=== PATIENT | male | born 1965 | race Hispanic/Latino ===

== ENCOUNTER 2017-01-23 03:53 | Emergency (ER) | payer SELFPAY ==
[~2017-01-23] VITALS: Ht 172.7 cm; Wt 97.2 kg
[2017-01-23 04:23] LABS: HEMATOCRIT 42.8 % (38.0-50.0); MCH 30.2 PG (29.0-34.0); MCHC 34.6 G/DL (30.0-36.0); MCV 87.3 FL (86-99); MEAN PLAT.VOLUME 9.3 uM^3 (9.0-12.4); PLATELET COUNT 216 K/uL (156-360); RBC DIS.WIDTH-CV 12.9 % (11.8-14.6); RBC DIS.WIDTH-SD 41.1 % (39-53)
[2017-01-23 04:32] LABS: CHLORIDE 104 mEq/L (99-109); POTASSIUM 3.3 mEq/L (3.7-5.4); SODIUM 137 mEq/L (136-147)
[2017-01-23 04:34] LABS: GLUCOSE 176 mg/dL (70-99)
[2017-01-23 04:36] LABS: ANION GAP 15 MEQ/L (2-14)
[2017-01-23 04:37] LABS: TOTAL BILIRUBIN 0.4 mg/dL (0.0-1.0)
[2017-01-23 04:38] LABS: ALKALINE PHOSPHATASE 87 IU/L (3-129)
[2017-01-23 04:39] LABS: UREA NITROGEN (BUN) 17 mg/dL (9-23)
[2017-01-23 04:40] LABS: GFR ESTIMATE (CALCULATED) > 59 mL/min/
[2017-01-23 05:52] LABS: ADD MIUA? YES; BILIRUBIN NEGATIVE; BLOOD LARGE; COLOR YELLOW ((YELLOW)); GLUCOSE (STRIP) NEGATIVE; KETONES 5; LEUKOCYTES NEGATIVE; NITRITE NEGATIVE; PROTEIN (STRIP) 30; SPECIFIC GRAVITY 1.026 (1.000-1.030); UROBILINOGEN 0.2 MG/DL (0.2-1.0)
[2017-01-23 05:58] LABS: BACTERIA NONE SEEN /HPF; EPITHELIAL CELLS RARE /HPF; MUCUS TRACE /LPF; RED BLOOD CELLS 20-30 /HPF (0-5); UCUL ADDED? NO; WHITE BLOOD CELLS 0-5 /HPF (0-5)
[2017-01-23] MEDS ORDERED: PERCOCET 5/31 TABLET PO (06:11)
[2017-01-23] MEDS ORDERED: MOTRIN600 MG PO (06:11)
[2017-01-23 06:21] VITALS: BP 172/52
== END 2017-01-23 06:22 | disposition home or self-care (01) ==
LOC: EME 03:53
PROVIDERS: Emergency Medicine
DX: N13.2 Hydronephrosis with renal and ureteral calculous obstruction (principal)
CPT/HCPCS: 74176; 80053; 81003; 85027; 99281; 99285; J1885; J2405; J7030